=== PATIENT | female | born 1990 | race Caucasian/White ===

== ENCOUNTER 2016-07-25 20:05 | Emergency (ER) | payer MEDICAID ==
[2016-07-25 20:24] VITALS: BP 107/63
[2016-07-25] MEDS ORDERED: Phenazopyridine 95 MG Tab PO ONE (21:13)
[2016-07-25] MEDS ORDERED: Nitrofurantoin Monohydrate/Macrocrystalline 100 MG Cap PO ONE (21:14)
--- NOTE | 2016-07-25 21:17 | EDM.PDOC ---
ED HPI RENAL/ - General Chief Complaint: Genitourinary Problem Stated Complaint: PEEING BLOOD Time Seen by Provider: 07/25/16 20:30 Source of Information: Reports: Patient History Limitations: Reports: No limitations - History of Present Illness INITIAL COMMENTS - FREE TEXT/NARRATIVE: Blood in urine with increased frequency and burning. In clinic on and testing done for STD. No results yet, not treated with anything. No fever. - Related Data Allergies/ADRs: Allergies Allergy/AdvReac Type Severity Reaction Status Date / Time amoxicillin [Amoxicillin] Allergy Rash Verified 07/25/16 20:11 bees Allergy Anaphylactic Uncoded 02/26/16 16:27 Shock Home Meds: Home Meds Sertraline HCl [Zoloft] 20 mg PO DAILY 06/22/13 [History] Albuterol [IJD: Albuterol HFA] 2 puff INH ASDIRECTED PRN 07/25/16 [History] Past Medical History - Past Health History Medical/Surgical History: Denies Medical/Surgical History HEENT History: Reports: None Cardiovascular History: Reports: None Respiratory History: Reports: Other (see below) Other Respiratory History: RAD Gastrointestinal History: Reports: None Genitourinary History: Reports: UTI, recurrent LIGHT [employer]USTRIAL History: Reports: , Other (see below) Other OB/BYN History: ovarian cyst Musculoskeletal History: Reports: Back pain, chronic Neurological History: Reports: None Psychiatric History: Reports: Depression Endocrine/Metabolic History: Reports: None Hematologic History: Reports: None Immunologic History: Reports: None Oncologic (Cancer) History: Reports: None Dermatologic History: Reports: None - Infectious Disease History Infectious Disease History: Reports: Chicken pox, RSV - Past Surgical History Head Surgeries/Procedures: Reports: None GI Surgical History: Reports: Cholecystectomy Female Surgical History: Reports: section Social & Family History - Family History Family Medical History: Noncontributory - Tobacco Use Smoking Status *Q: Never Smoker Second Hand Smoke Exposure: Yes - Caffeine Use Caffeine Use: Reports: Coffee, Energy drinks, Soda - Alcohol Use Days Per Week of Alcohol Use: 2 Number of Drinks Per Day: 20 Total Drinks Per Week: 40 - Recreational Drug Use Recreational Drug Use: No - Living Situation & Occupation Living situation: Reports: with significant other ED ROS GENERAL - Review of Systems Review Of Systems: See Below Constitutional: Reports: no symptoms HEENT: Reports: No symptoms Respiratory: Reports: No Symptoms Cardiovascular: Reports: No symptoms GI/Abdominal: Reports: Other (suprapubic) : Reports: discharge (clear with odor), dysuria, frequency. Denies: flank pain, irregular menses Musculoskeletal: Reports: no symptoms Skin: Reports: no symptoms Neurological: Reports: Paresthesia Psychiatric: Reports: No symptoms ED EXAM, RENAL/ - Physical Exam Exam: See Below Exam Limited By: No limitations General Appearance: alert, no apparent distress, obese Ears: normal external exam Nose: normal inspection Throat/Mouth: Normal inspection Head: atraumatic Neck: normal inspection Respiratory/Chest: no respiratory distress GI/Abdominal: normal bowel sounds, soft, tender (suprapubic) Back Exam: No: CVA tenderness (L), CVA tenderness (R) Extremities: normal inspection Psychiatric: normal affect, normal mood Skin Exam: Warm, Dry, Intact Course - Vital Signs Last Recorded V/S: Last Vital Signs Temp 97.4 F 07/25/16 20:22 Pulse 71 07/25/16 20:22 Resp 18 07/25/16 20:22 BP 107/63 07/25/16 20:22 Pulse Ox 97 07/25/16 20:22 - Orders/Labs/Meds Labs: Laboratory Tests 07/25/16 Range/Units 20:28 Urine Color Yellow (YELLOW) Urine Appearance Slightly cloudy (CLEAR) Urine pH 5.5 (5.0-9.0) Ur Specific [place] >= 1.030 (1.005-1.030) Urine Protein 30 H (NEGATIVE) Urine Glucose (UA) Negative (NEGATIVE) Urine Ketones 15 H (NEGATIVE) Urine Occult Blood Negative (NEGATIVE) Urine Nitrite Negative (NEGATIVE) Urine Bilirubin Moderate H (NEGATIVE) Urine Urobilinogen 0.2 (0.2-1.0) mg/dL Ur Leukocyte Esterase Small H (NEGATIVE) Urine RBC 0-5 /HPF Urine WBC 10-20 H (0-5/HPF) /HPF Ur Epithelial Cells Many H /HPF Urine Bacteria Many H (0-FEW/HPF) /HPF Meds: Medications Discontinued Medications Generic Name Dose Route Start Last Admin Trade Name Freq PRN Reason Stop Dose Admin Nitrofurantoin Macrocrystals 100 mg 07/25/16 21:14 07/25/16 21:18 Macrobid PO 07/25/16 21:15 100 mg ONETIME ONE Administration Phenazopyridine HCl 190 mg 07/25/16 21:13 07/25/16 21:18 Urinary Pain Relief PO 07/25/16 21:14 190 mg ONETIME ONE Administration Departure - Departure Time of Disposition: 21:15 Disposition: Home, Self-Care 01 Condition: good Clinical Impression: UTI, Urinary tract infectious disease Instructions: Urinary Tract Infection, Adult, [id number] Referrals: Javon Simon MD [Primary Care Provider] - Forms: ED Department Discharge Additional Instructions: increase fluid intake macrobid 100mg one twice daily for one week phenazopyridine 200mg one every 8 hours for urinary symptoms follow up with clinic with PCP regarding results of previous testing.
== END 2016-07-25 21:24 | disposition home or self-care (01) ==
LOC: DL.ED 20:05
DX: N39.0 Urinary tract infection, site not specified (principal); F32.9 Major depressive disorder, single episode, unspecified; Z90.49 Acquired absence of other specified parts of digestive tract; Z88.1 Allergy status to other antibiotic agents; Z91.030 Bee allergy status
CPT/HCPCS: 81001; 99283; A9270